=== PATIENT | female | born 1955 | race Caucasian/White ===

== ENCOUNTER 2016-07-31 21:34 | Observation (INO) | payer OTHER ==
[~2016-07-31] VITALS: Ht 154.9 cm; Wt 83.0 kg
[~2016-07-31 21:34] MED LIST: CHILDRENS CHEWA81 MG PO; CLARITIN10 MG PO; COREG3.125 MG PO; LASIX40 MG PO; NICODERM 21MG PA1 EA TD; NITROQUICK0.4 MG SL; PAIN RELIEF650 MG PO; PRILOSEC20 MG PO; SINGULAIR10 MG PO; SPIRIVA18 MCG INH; THEOPHYLLINE C300 MG PO; TOPAMAX100 MG PO
[2016-07-31 22:09] LABS: BASO % 0.2 % (0.1-1.2); EOS # 0.2 10_X3_uL (0.0-0.4); EOS % 1.6 % (0.7-5.8); GRAN # 8.4 10_X3_uL (1.6-6.1); GRAN % 66.4 % (34.0-71.1); HEMATOCRIT 36.1 % (34-45); HEMOGLOBIN 12.1 g/dL (11.2-15.7); LYMPH % 23.9 % (19.3-51.7); MEAN CORPUSCULAR HEMOGLOBIN 30.1 pg (27.0-33.0); MEAN CORPUSCULAR HGB CONC 33.5 g/dL (32.0-36.0); MEAN CORPUSCULAR VOLUME 89.8 fL (79-95); MEAN PLATELET VOLUME 10.4 fl (7.5-11.5); MONO % 7.9 % (4.7-12.5); PLATELET COUNT 287 x10_3/uL (182-369); RED BLOOD COUNT 4.02 x10_6/uL (3.9-5.2); RED CELL DISTRIBUTION WIDTH 14.9 % (11.7-14.4); WHITE BLOOD COUNT 12.6 x10_3/uL (4.0-10.0)
[2016-07-31 22:22] LABS: ALBUMIN 4.2 gm/dL (3.4-5.0); ALKALINE PHOSPHATASE 112 U/L (50-136); ALT/SGPT 9 U/L (3.5-33.9); AST/SGOT 7 U/L (7.04-26.96); BILIRUBIN,TOTAL < 0.15 mg/dL (0.0-1.0); BLOOD UREA NITROGEN 6 mg/dL (7-18); CALCIUM 8.6 mg/dL (8.7-10.7); CARBON DIOXIDE 24 mmol/L (21-32); CREATINE KINASE 39 U/L (21-215); CREATININE 0.7 mg/dL (0.6-1.3); GLUCOSE,RANDOM 104 mg/dL (70-99); POTASSIUM 3.7 mmol/L (3.5-5.1); SODIUM 143 mmol/L (136-145); TOTAL PROTEIN 6.8 gm/dL (6.4-8.2)
[2016-08-01 02:30] LABS: PARTIAL THROMBOPLASTIN TIME 23.2 SECONDS (21.3-29.3); PROTHROMBIN TIME (PATIENT) 10.3 SECONDS (9.9-11.1)
[2016-08-01 04:21] LABS: BASO % 0.3 % (0.1-1.2); EOS # 0.1 10_X3_uL (0.0-0.4); EOS % 1.5 % (0.7-5.8); GRAN # 5.3 10_X3_uL (1.6-6.1); GRAN % 57.9 % (34.0-71.1); HEMATOCRIT 33.3 % (34-45); LYMPH % 32.8 % (19.3-51.7); MEAN CORPUSCULAR VOLUME 90.7 fL (79-95); MEAN PLATELET VOLUME 10.1 fl (7.5-11.5); MONO # 0.7 10_X3_uL (0.2-0.9); MONO % 7.5 % (4.7-12.5); PLATELET COUNT 251 x10_3/uL (182-369); RED BLOOD COUNT 3.67 x10_6/uL (3.9-5.2); WHITE BLOOD COUNT 9.2 x10_3/uL (4.0-10.0)
[2016-08-01 04:33] LABS: CKMB < 1.0 ng/ml (0.0-5.0); TROP-I < 0.30 NG/ML (0.00-0.30)
[2016-08-01 12:12] LABS: CKMB < 1.0 ng/ml (0.0-5.0); TROP-I < 0.30 NG/ML (0.00-0.30)
[2016-08-01 16:23] LABS: CKMB < 1.0 ng/ml (0.0-5.0); TROP-I < 0.30 NG/ML (0.00-0.30)
== END 2016-08-01 17:42 | disposition home or self-care (01) ==
LOC: ER 21:34 → MS 23:59 → ER 08-01 01:07 → MS 08-01 17:42
PROVIDERS: Emergency Medicine; ADMIT Family Medicine
DX: R07.9 Chest pain, unspecified (principal); R60.9 Edema, unspecified; R11.0 Nausea; I10 Essential (primary) hypertension; I51.9 Heart disease, unspecified; J44.9 Chronic obstructive pulmonary disease, unspecified; Z90.49 Acquired absence of other specified parts of digestive tract; Z90.710 Acquired absence of both cervix and uterus; Z82.49 Family history of ischemic heart disease and other diseases of the circulatory system; Z80.0 Family history of malignant neoplasm of digestive organs; F17.210 Nicotine dependence, cigarettes, uncomplicated; Z80.8 Family history of malignant neoplasm of other organs or systems; G43.909 Migraine, unspecified, not intractable, without status migrainosus; Z86.010 Personal history of colon polyps; N39.3 Stress incontinence (female) (male); Z79.82 Long term (current) use of aspirin; Z79.899 Other long term (current) drug therapy; Z98.890 Other specified postprocedural states; K59.00 Constipation, unspecified; M79.89 Other specified soft tissue disorders; M79.1 Myalgia; M25.50 Pain in unspecified joint
CPT/HCPCS: 36415; 71010; 80053; 82550; 82553; 85025; 85379; 85610; 85730; 93005; 93041; 93971; 94640; 94664; 96361; 96372; 96374; 96376; 99070; 99285-25; G0378

== ENCOUNTER 2016-08-26 22:25 | Emergency (ER) | payer OTHER | END 2016-08-27 00:35 | disposition home or self-care (01) | LOC: ER 22:25 | DX: J02.9 Acute pharyngitis, unspecified (principal); G43.909 Migraine, unspecified, not intractable, without status migrainosus; M79.1 Myalgia; R11.0 Nausea; J44.9 Chronic obstructive pulmonary disease, unspecified; G89.29 Other chronic pain; M54.9 Dorsalgia, unspecified; Z90.710 Acquired absence of both cervix and uterus; F17.210 Nicotine dependence, cigarettes, uncomplicated; Z79.899 Other long term (current) drug therapy; Z79.891 Long term (current) use of opiate analgesic; Z79.82 Long term (current) use of aspirin | CPT/HCPCS: 87070; 87400; 87880; 96372; 99283-25; Q0169 ==

== ENCOUNTER 2016-09-05 22:05 | Emergency (ER) | payer OTHER | END 2016-09-06 02:34 | disposition home or self-care (01) | LOC: ER 22:05 | DX: R07.89 Other chest pain (principal); I44.7 Left bundle-branch block, unspecified; J43.9 Emphysema, unspecified; R79.1 Abnormal coagulation profile; F17.210 Nicotine dependence, cigarettes, uncomplicated; Z79.899 Other long term (current) drug therapy; Z79.82 Long term (current) use of aspirin ==